=== PATIENT | female | born 1990 | race Caucasian/White ===

== ENCOUNTER 2018-06-07 17:54 | Inpatient (IN) ==
[2018-06-07 19:37] LABS: Basophils % 0.4 % (0.1-2.0); Eosinophils # 0.1 K/mm3 (0.0-0.4); Eosinophils % 0.8 % (0.1-12.0); Hematocrit 39.1 % (37.0-47.0); Hemoglobin 12.4 g/dL (12.2-16.2); Lymphocytes # 1.5 K/mm3 (0.7-4.5); Lymphocytes % 16.8 % (10-50); Mean Corpuscular HGB Conc 31.8 g/dL (31.8-35.4); Mean Corpuscular Volume 85.1 fl (81-99); Mean Platelet Volume 7.7 fl (7.4-10.4); Monocytes # 0.5 K/mm3 (0.1-1.0); Monocytes % 5.8 % (1.7-9.3); Neutrophils # 6.8 K/mm3 (1.8-7.8); Neutrophils % 76.1 % (37.0-80.0); Platelet Count 449 K/mm3 (142-424); Red Blood Count 4.59 M/mm3 (4.20-5.40); Red Cell Distribution Width 14.3 % (11.5-17.5); White Blood Count 8.9 K/mm3 (4.8-10.8)
[2018-06-07 19:55] LABS: Albumin Level 2.3 gm/dL (3.4-5.0); Albumin/Globulin Ratio 0.4 (1.1-1.8); Anion Gap 15.1 mEq/L (5-15); Bilirubin,Total 0.5 mg/dL (0.2-1.0); C-Reactive Protein 2.7 mg/L (0.0-0.9); Calcium 9.1 mg/dL (8.5-10.1); Globulin 5.9 gm/dl (1.3-3.2); Potassium 4.1 mmoL/L (3.5-5.1); Total Protein,Serum 8.2 gm/dL (6.4-8.2)
--- NOTE | 2018-06-07 21:53 | Emergency Department Note ---
ED Disposition Clinical Impression: IDDM (insulin dependent diabetes mellitus) Abscess of skin or subcutaneous tissue Qualifiers: Site of cutaneous abscess: trunk Site of cutaneous abscess of trunk: back Qualified Code(s): L02.212 - Cutaneous abscess of back [any part, except buttock] DKA (diabetic ketoacidoses) Qualifiers: Diabetes mellitus type: type 1 Diabetes mellitus complication detail: without coma Qualified Code(s): E10.10 - Type 1 diabetes mellitus with ketoacidosis without coma Disposition: Admitted As Inpatient Condition on Discharge: Good Instructions: DI for Skin Abscess Referrals: Destin Moya [Primary Care Provider] - - Critical Care Critical Care Time: No Attestation: On 06/07/18, the high probability of a clinically significant, sudden or life t hreatening deterioration of the following system(s) required my full and direct attention, intervention and personal management. The time I documented below is in addition to time spent performing reported procedures but includes the following listed in this critical care notation. Medical Decision Making - Medical Records Medical records reviewed: Yes: I reviewed the patient's medical records. - Asael Inquiry Pt receiving controlled substance: No Vital Signs: 06/07/18 19:07 Temperature 98.6 F Temperature Source Oral Pulse Rate [Right Brachial] 107 H Respiratory Rate 18 Blood Pressure [Right Arm] 134/78 Blood Pressure Mean [Right Arm] 96 02 Sat by Pulse Oximetry 100 - Lab Data Lab results reviewed: Yes: I reviewed the patient's lab results. Lab Results 06/07/18 19:24: WBC 8.9, RBC 4.59, Hgb 12.4, Hct 39.1, MCV 85.1, MCH 27.0, MCHC 31.8, RDW 14.3, Plt Count 449 H D, MPV 7.7, Neut % (Auto) 76.1, Lymph % (Auto) 16.8, [place] % (Auto) 5.8, Eos % (Auto) 0.8, Baso % (Auto) 0.4, Neut # (Auto) 6.8, Lymph # (Auto) 1.5, [place] # (Auto) 0.5, Eos # (Auto) 0.1, Baso # (Auto) 0.0 06/07/18 19:24: Sodium 130 L, Potassium 4.1, Chloride 91 L, Carbon Dioxide 28, Anion Gap 15.1 H, BUN 8, Creatinine 0.96, Estimated Creat Clear 66, Estimated GFR 70, Est GFR ( Amer) 84, Glucose 547 H*, Calcium 9.1, Total Bilirubin 0.5, AST 11 L, ALT 18, Alkaline Phosphatase 191 H, C-Reactive Protein 2.7 H, Total Protein 8.2, Albumin 2.3 L, Globulin 5.9 H, Albumin/Globulin Ratio 0.4 L 06/07/18 19:24: ESR > 120 H 06/07/18 19:24: Lactate 1.3 06/07/18 19:24: Acetone Level Small Result diagrams: 06/07/18 19:24 06/07/18 19:24 Orders (Tests/Meds): ED MEDICATIONS Generic Name Dose Route Start Last Admin Trade Name Freq PRN Reason Stop Dose Admin Sodium Chloride 1,000 mls @ 999 mls/hr 06/07/18 19:15 06/07/18 20:00 Sod Chlor 0.9% 1000ml Bag IV 06/07/18 20:15 999 mls/hr .Q1H1M DOLORES Administration Sodium Chloride 1,000 mls @ 999 mls/hr 06/07/18 20:30 06/07/18 20:27 Sod Chlor 0.9% 1000ml Bag IV 06/07/18 21:30 999 mls/hr .Q1H1M DOLORES Administration Vancomycin HCl 1,000 mg/ 250 mls @ 125 mls/hr 06/07/18 21:56 06/07/18 22:01 Sodium Chloride IV 06/07/18 23:55 125 mls/hr ONCE ONE Administration Miscellaneous 1 each 06/07/18 22:00 06/07/18 21:56 Vancomycin Consult Request * 07/07/18 21:59 1 each CONSULT PHARMACY DOLORES Administration Sodium Chloride 10 ml 06/07/18 19:12 Saline Flush 10ml Syringe IV 07/07/18 19:11 NEEDED PRN Maintain IV Site Discontinued Medications Generic Name Dose Route Start Last Admin Trade Name Freq PRN Reason Stop Dose Admin Insulin Human Regular 10 unit 06/07/18 22:18 Humulin R Insulin 100 Units/Ml 10ml Vial IVP 06/07/18 22:19 ONCE ONE Ketorolac Tromethamine 30 mg 06/07/18 19:12 06/07/18 19:59 Toradol 30mg/Ml Vial IV 06/07/18 19:13 30 mg ONCE ONE Administration ORDERS Category Date Time Status Blood Culture Stat Micro 06/07/18 19:24 Received - Physician Consults Physician Consulted: sound Reason -: Admission Skin/Abscess/FB HPI - General Chief complaint: Skin/Abscess/Foreign Body Stated complaint: Abscess on right shoulder, no better Time Seen by Provider: 06/07/18 21:50 Mode of Arrival: Family Vehicle Source of Information: Patient, Medical Record Limitations: No Limitations Description of Symptoms (Recalled from ER Triage Doc. by RN): pt seen in ed on thursday for right scapular abscess. pt given antibx and states she is still taking them but the abscess has worsened. - History of Present Illness HPI narrative: diabetic wf who has progressive abscess rt scapular region - she was seen in the ed and had pos mrsa and refused admit - despite abx abscess has increased MD complaint: abscess/boil Onset (ago): day(s) Tetanus up to date: unsure Location: back Severity: moderate Associated symptoms: denies other symptoms Treatments prior to arrival: antibiotic - Related Data Home Medications Medication Instructions Recorded Confirmed Sulfamethoxazole/Trimethoprim 1 each PO BID 06/07/18 06/07/18 [Bactrim DS tablet] cephALEXin [Keflex 500mg Cap] 500 mg PO TID 06/07/18 06/07/18 Allergies Allergy/AdvReac Type Severity Reaction Status Date / Time No Known Allergies Allergy Verified 06/07/18 19:10 [facility] History - Hepatitis A Screen Drug use history?: Yes High risk sexual behaviors?: No History of sexually transmitted infection?: No Currently employed?: No Childcare worker?: No Do you have indoor plumbing?: Yes Do you have electricity?: Yes Attestation statement:: This patient has been screened for Hepatitis A risk factors. I have reviewed the patient's past medical history: Yes Medical History: Reports:: Diabetes Mellitus Type 1 Denies:: Cancer, Diabetes Mellitus Type 2, MRSA Laterality Cases: Left: Other Amputation: No - Social History Smoking Status: Never smoker Alcohol Intake: never - Psychiatric History Expresses thoughts of harming self/others: None Suicide Plan Description: No Plan ROS Obtained: Yes All systems reviewed & no additional complaints - Constitutional Constitutional: Denies fever(s) - Eyes Eyes: Denies change in vision - ENT Ears, Nose, Mouth, and Throat: Denies sore throat - Cardiovascular Cardiovascular: Denies chest pain - Respiratory Respiratory: No cough - Gastrointestinal Gastrointestingal: Denies: diarrhea - Genitourinary Female Genitourinary: Denies dysuria - Musculoskeletal Musculoskeletal: Denies joint pain, Denies neck pain - Integumentary/Breasts Skin/Breast: Reports boil - Neurologic Neurologic: Denies seizure-like activity Physical Exam - General General appearance: alert, in no apparent distress - Head Head exam: normocephalic - Eye Eye exam: Present: PERRL, EOMI - ENT ENT exam: Present: mucous membranes moist - Neck Neck exam: Present: trachea midline - Respiratory Respiratory exam: Absent: respiratory distress - Cardiovascular Cardiovascular exam: Present: regular rate. Absent: systolic murmur - Abdominal Exam Abdominal exam: Present: soft - Extremities Exam Extremities exam: Present: full ROM - Neurological Exam Neurological exam: Present: alert, oriented X3, CN II-XII intact - Psychiatric Psychiatric exam: Present: normal affect - Skin Skin exam: Present: other (boil 3x4 cm )
--- NOTE | 2018-06-08 07:46 | Pharmacy Consult Notes ---
[facility] Pharmacy VTE Monitoring - Patient Demographics Admission date: 06/08/18 Report Date: 06/08/18 Time: 07:46 Allergies/Adverse Reactions: Patient Allergies No Known Allergies Allergy (Verified 06/07/18 19:10) Height: 1.52 m Weight: 50.604 kg Patient Problems: Current Active Problems Abscess of skin or subcutaneous tissue (Acute) IDDM (insulin dependent diabetes mellitus) (Acute) DKA (diabetic ketoacidoses) (Acute) - VTE Risk Labs: VTE Related Lab Results Hgb 12.4 g/dL (12.2-16.2) 06/07/18 19:24 Hct 39.1 % (37.0-47.0) 06/07/18 19:24 Plt Count 449 K/mm3 (142-424) H D 06/07/18 19:24 BUN 8 mg/dL (7-18) 06/07/18 19:24 Creatinine 0.96 mg/dL (0.55-1.02) 06/07/18 19:24 Estimated Creat Clear 66 mL/min (50-200) 06/07/18 19:24 Was VTE Risk Assessment Performed: Yes VTE Score: 0 VTE Risk Level: Very Low Risk Clinical Trial Participant: No - Prophylaxis VTE Prophylaxis Ordered?: Yes Types of VTE Prophylaxis: TEDS Knee High
[2018-06-08 08:09] LABS: Basophils % 0.4 % (0.1-2.0); Eosinophils # 0.1 K/mm3 (0.0-0.4); Eosinophils % 1.4 % (0.1-12.0); Hematocrit 31.6 % (37.0-47.0); Lymphocytes # 1.8 K/mm3 (0.7-4.5); Lymphocytes % 23.2 % (10-50); Mean Corpuscular HGB Conc 31.8 g/dL (31.8-35.4); Mean Corpuscular Hemoglobin 26.4 pg (27.0-31.2); Mean Platelet Volume 7.4 fl (7.4-10.4); Monocytes # 0.5 K/mm3 (0.1-1.0); Monocytes % 6.9 % (1.7-9.3); Neutrophils # 5.2 K/mm3 (1.8-7.8); Neutrophils % 68.1 % (37.0-80.0); Platelet Count 408 K/mm3 (142-424); Red Blood Count 3.81 M/mm3 (4.20-5.40); Red Cell Distribution Width 14.1 % (11.5-17.5); White Blood Count 7.7 K/mm3 (4.8-10.8)
[2018-06-08 08:22] LABS: Anion Gap 8.1 mEq/L (5-15); Potassium 3.1 mmoL/L (3.5-5.1)
[2018-06-08 08:40] LABS: Calcium 7.5 mg/dL (8.5-10.1)
[2018-06-08 08:50] LABS: Hemoglobin 10.1 g/dL (12.2-16.2)
--- NOTE | 2018-06-08 10:13 | History & Physical Report ---
*Admission Date: 06/08/18 <Abbie Briggs 06/08/18 10:21> *Chief complaint: Abscess right scapular area <Abbie Briggs 06/08/18 10:21> *History of present illness: Ms. Norman is a 28-year-old female with a history of diabetes mellitus who presented to the [facility] emergency room with worsening abscess of the right scapular area. She was seen in the emergency room on 06/04/2018 as well and refused admission. She was started on p.o. antibiotics and cultures revealed MRSA. Patient states that the abscess has progressively worsened with an increase in drainage and pain. She has also had a fever and elevated blood sugars.. Also to note she is 2 months . With evaluation in the emergency room edema and erythema around the abscess was noted to be worse. She was thus admitted for IV antibiotics and surgical consult. This a.m. the area remains painful. She was able to rest some last night. She is n.p.o. <Abbie Briggs 06/08/18 10:21> [facility] History Medical History: Reports:: Diabetes Mellitus Type 1 Denies:: Cancer, Diabetes Mellitus Type 2, MRSA <Abbie Briggs 06/08/18 10:21> Have you ever received a pneumonia vaccine?: No <Abbie Briggs 06/08/18 10:21> Have you received a flu vaccine this season?: Yes <Abbie Briggs 06/08/18 10:21> Laterality Cases: Left: Other <Abbie Briggs 06/08/18 10:21> Other Surgeries: Yes: Appendectomy, (2), Other (TUMOR REMOVED RIGHT FOREHEAD) <Abbie Briggs 06/08/18 10:21> Amputation: No <Abbie Briggs 06/08/18 10:21> - *Social History Educational Level: Completed High School <Abbie Briggs 06/08/18 10:21> Smoking Status: Never smoker <Abbie Briggs 06/08/18 10:21> Alcohol Intake: never <Abbie Briggs 06/08/18 10:21> Occupational Status: unemployed <Abbie Briggs 06/08/18 10:21> Housing: house <Abbie Briggs - 06/08/18 10:21> Household Members: spouse, children <BriggsAbbie Renay 06/08/18 10:21> Travel in the last 8 weeks: None <Briggs,Abbie - 06/08/18 10:21> - Psychiatric History Expresses thoughts of harming self/others: None <Briggs,Abbie Renay 06/08/18 10:21> Suicide Plan Description: No Plan <ChesterAbbie Renay 06/08/18 10:21> *Family Hx:: Cancer, Diabetes <ChesterAbbie - 06/08/18 10:21> Review of Systems - Constitutional Reports fever(s) <Briggs,Abbie - 06/08/18 10:21> - ENT Denies ear pain, Denies sore throat <Abbie Briggs 06/08/18 10:21> - *Cardiovascular Denies chest pain, Denies shortness of breath <ChesterAbbie - 06/08/18 10:21> - *Respiratory Denies chest congestion, Denies cough, Denies shortness of breath <Abbie Briggs 06/08/18 10:21> - *Gastrointestinal Denies abdominal pain, Denies change in stools, Denies nausea, Denies vomiting <ChesterAbbie - 06/08/18 10:21> - *Genitourinary Denies difficulty urinating <ChesterAbbie - 06/08/18 10:21> - *Musculoskeletal Denies abnormal walking <ChesterAbbie - 06/08/18 10:21> - *Neurologic Denies seizure-like activity <Abbie Briggs 06/08/18 10:21> Meds Home Medications Medication Instructions Recorded Confirmed Type Insulin Aspart [Novolog] 0 unit SQ DIRECTED 06/07/18 06/08/18 History Insulin NPH Hum/Reg Insulin Hm 7 unit SQ PM 06/07/18 06/08/18 History [Humulin 70/30 Insulin 100 Units/mL 10mL Vial] Insulin NPH Hum/Reg Insulin Hm 17 unit SQ DAILY 06/07/18 06/07/18 History [Humulin 70/30 Insulin 100 Units/mL 10mL Vial] Sulfamethoxazole/Trimethoprim 1 each PO BID 06/07/18 06/07/18 History [Bactrim DS tablet] cephALEXin [Keflex 500mg Cap] 500 mg PO TID 06/07/18 06/07/18 History <Huyen Walls - 06/08/18 11:16> Allergies Allergy/AdvReac Type Severity Reaction Status Date / Time No Known Allergies Allergy Verified 06/07/18 19:10 <Huyen Walls - 06/08/18 11:16> Exam Vital signs and Labs for Last 24 Hours: Temp Pulse Resp BP Pulse Ox 98.4 F 91 H 16 137/68 97 06/08/18 08:00 06/08/18 08:00 06/08/18 08:00 06/08/18 08:00 06/08/18 08:00 Laboratory Results - last 24 hr 06/07/18 19:24: WBC 8.9, RBC 4.59, Hgb 12.4, Hct 39.1, MCV 85.1, MCH 27.0, MCHC 31.8, RDW 14.3, Plt Count 449 H D, MPV 7.7, Neut % (Auto) 76.1, Lymph % (Auto) 16.8, [place] % (Auto) 5.8, Eos % (Auto) 0.8, Baso % (Auto) 0.4, Neut # (Auto) 6.8, Lymph # (Auto) 1.5, [place] # (Auto) 0.5, Eos # (Auto) 0.1, Baso # (Auto) 0.0 06/07/18 19:24: Sodium 130 L, Potassium 4.1, Chloride 91 L, Carbon Dioxide 28, Anion Gap 15.1 H, BUN 8, Creatinine 0.96, Estimated Creat Clear 66, Estimated GFR 70, Est GFR ( Amer) 84, Glucose 547 H*, Calcium 9.1, Total Bilirubin 0.5, AST 11 L, ALT 18, Alkaline Phosphatase 191 H, C-Reactive Protein 2.7 H, Total Protein 8.2, Albumin 2.3 L, Globulin 5.9 H, Albumin/Globulin Ratio 0.4 L 06/07/18 19:24: ESR > 120 H 06/07/18 19:24: Lactate 1.3 06/07/18 19:24: Acetone Level Small 06/07/18 22:57: POC Glucose 368 H* 06/08/18 07:09: WBC 7.7, RBC 3.81 L, Hgb 10.1 L D, Hct 31.6 L, MCV 83.0, MCH 26.4 L, MCHC 31.8, RDW 14.1, Plt Count 408, MPV 7.4, Neut % (Auto) 68.1, Lymph % (Auto) 23.2, [place] % (Auto) 6.9, Eos % (Auto) 1.4, Baso % (Auto) 0.4, Neut # (Auto) 5.2, Lymph # (Auto) 1.8, [place] # (Auto) 0.5, Eos # (Auto) 0.1, Baso # (Auto) 0.0 06/08/18 07:09: Sodium 140, Potassium 3.1 L D, Chloride 106, Carbon Dioxide 29, Anion Gap 8.1, BUN 7, Creatinine 0.69 D, Estimated Creat Clear 98, Estimated GFR 102, Est GFR ( Amer) 123 D, Glucose 185 H D, Calcium 7.5 L D, Magnesium 1.8 06/08/18 07:09: Acetone Level None detected <Sound,Huyen - 06/08/18 11:16> Temp Pulse Resp BP Pulse Ox 98.4 F 91 H 16 137/68 97 06/08/18 08:00 06/08/18 08:00 06/08/18 08:00 06/08/18 08:00 06/08/18 08:00 Laboratory Results - last 24 hr 06/07/18 19:24: WBC 8.9, RBC 4.59, Hgb 12.4, Hct 39.1, MCV 85.1, MCH 27.0, MCHC 31.8, RDW 14.3, Plt Count 449 H D, MPV 7.7, Neut % (Auto) 76.1, Lymph % (Auto) 16.8, [place] % (Auto) 5.8, Eos % (Auto) 0.8, Baso % (Auto) 0.4, Neut # (Auto) 6.8, Lymph # (Auto) 1.5, [place] # (Auto) 0.5, Eos # (Auto) 0.1, Baso # (Auto) 0.0 06/07/18 19:24: Sodium 130 L, Potassium 4.1, Chloride 91 L, Carbon Dioxide 28, Anion Gap 15.1 H, BUN 8, Creatinine 0.96, Estimated Creat Clear 66, Estimated GFR 70, Est GFR ( Amer) 84, Glucose 547 H*, Calcium 9.1, Total Bilirubin 0.5, AST 11 L, ALT 18, Alkaline Phosphatase 191 H, C-Reactive Protein 2.7 H, Total Protein 8.2, Albumin 2.3 L, Globulin 5.9 H, Albumin/Globulin Ratio 0.4 L 06/07/18 19:24: ESR > 120 H 06/07/18 19:24: Lactate 1.3 06/07/18 19:24: Acetone Level Small 06/07/18 22:57: POC Glucose 368 H* 06/08/18 07:09: WBC 7.7, RBC 3.81 L, Hgb 10.1 L D, Hct 31.6 L, MCV 83.0, MCH 26.4 L, MCHC 31.8, RDW 14.1, Plt Count 408, MPV 7.4, Neut % (Auto) 68.1, Lymph % (Auto) 23.2, [place] % (Auto) 6.9, Eos % (Auto) 1.4, Baso % (Auto) 0.4, Neut # (Auto) 5.2, Lymph # (Auto) 1.8, [place] # (Auto) 0.5, Eos # (Auto) 0.1, Baso # (Auto) 0.0 06/08/18 07:09: Sodium 140, Potassium 3.1 L D, Chloride 106, Carbon Dioxide 29, Anion Gap 8.1, BUN 7, Creatinine 0.69 D, Estimated Creat Clear 98, Estimated GFR 102, Est GFR ( Amer) 123 D, Glucose 185 H D, Calcium 7.5 L D, Magnesium 1.8 06/08/18 07:09: Acetone Level None detected <Abbie Briggs - 06/08/18 10:21> I & O for Last 24 hours: Intake & Output 06/05/18 06/06/18 06/07/18 06/08/18 11:59 11:59 11:59 11:59 Intake Total 2838 / 2838 Balance 2838 / 2838 Weight 111 lb 9 oz <TitiHuyen - 06/08/18 11:16> Intake & Output 06/05/18 06/06/18 06/07/18 06/08/18 11:59 11:59 11:59 11:59 Intake Total 2838 / 2838 Balance 2838 / 2838 Weight 111 lb 9 oz <Abbie Briggs 06/08/18 10:21> - Constitutional no acute distress <Abbie Briggs 06/08/18 10:21> Comments: Awakened for exam <Abbie Briggs 06/08/18 10:21> - *Routine HEENT Exam Head: Present: normocephalic, atraumatic <Abbie Briggs 06/08/18 10:21> Eye: Present: PERRL. Absent: conjunctival icterus, scleral injection <Abbie Briggs 06/08/18 10:21> ENT: Present: mucous membranes moist, oropharynx clear <Abbie Briggs 06/08/18 10:21> - *Routine Neck Exam Present: supple, tenderness. Absent: carotid bruit, lymphadenopathy, thyromegaly <Abbie Briggs 06/08/18 10:21> Comments: Right side of neck <Abbie Briggs 06/08/18 10:21> - *Routine Respiratory Exam Present: CTA bilaterally (Anteriorly and posteriorly) <Abbie Briggs 06/08/18 10:21> - *Routine Cardiovascular Exam Present: RRR <Abbie Briggs 06/08/18 10:21> - *Routine Abdominal Exam Present: soft, normoactive bowel sounds. Absent: tenderness, distended <Abbie Briggs 06/08/18 10:21> - *Routine Extremities Exam Absent: edema <Abbie Briggs 06/08/18 10:21> - *Routine Skin Exam Comments: Right scapular with edema and erythema of about 5-6 cm. Center with draining pus. Very tender with removal of tape. <Abbie Briggs 06/08/18 10:21> - *Routine Neurological Exam Present: alert, oriented X3 <Abbie Briggs 06/08/18 10:21> Assessment and Plan (1) Abscess of skin or subcutaneous tissue Current visit: Yes Status: Acute Qualifiers: Site of cutaneous abscess: trunk Site of cutaneous abscess of trunk: back Qualified Code(s): L02.212 - Cutaneous abscess of back [any part, except buttock] Category: Medical Code(s): L02.91 - Cutaneous abscess, unspecified <TitiHuyen - 06/08/18 11:16> - Assessment and plan all Dx Assessment and Plan for all problems:: Will get surgical consult for the abscess on her back that is draining with yellow pus noted in my exam this morning. I & D this PM per surgery. Will continue IV abx and descalade after cultures. Pain management with IV meds for now. <Huyen Walls - 06/08/18 11:16> Patient has been started on IV fluids, antibiotics, sliding scale insulin, and has a surgical consult. She is n.p.o. <Abbie Briggs - 06/08/18 10:21>
--- NOTE | 2018-06-08 11:08 | Consult Report ---
*Admission Date: 06/08/18 *Chief complaint: Abscess on right shoulder *History of present illness: Patient is a 28-year-old white female with diabetes. She had a previous abscess about 9 months ago on her left shoulder for which she had to have incision and drainage under anesthesia in [facility] and initiation of dressing changes. For several days she has had a similar area on the right shoulder p osteriorly. She had been seen and evaluated in the emergency department several days ago and was found to have a serum glucose greater than 700. Reportedly the patient refused at that time. She was started on oral antibiotics. She presented back to the emergency department yesterday evening with worsening symptoms. She was admitted for inpatient management and surgical consultation. Review of Systems - Review of Systems Review of systems:: pertinent systems reviewed and negative unless documented below - *Neurologic Denies abnormal walking, Denies seizure-like activity [facility] History Medical History: Reports:: Diabetes Mellitus Type 1 Denies:: Cancer, Diabetes Mellitus Type 2, MRSA Have you ever received a pneumonia vaccine?: No Have you received a flu vaccine this season?: Yes Laterality Cases: Left: Other Other Surgeries: Yes: Appendectomy, (2), Other (TUMOR REMOVED RIGHT FOREHEAD) Amputation: No - *Social History Educational Level: Completed High School Smoking Status: Never smoker Alcohol Intake: never Occupational Status: unemployed Housing: house Household Members: spouse, children Travel in the last 8 weeks: None - Psychiatric History Expresses thoughts of harming self/others: None Suicide Plan Description: No Plan *Family Hx:: Cancer, Diabetes Meds Home Medications Medication Instructions Recorded Confirmed Type Insulin Aspart [Novolog] 0 unit SQ DIRECTED 06/07/18 06/08/18 History Insulin NPH Hum/Reg Insulin Hm 7 unit SQ PM 06/07/18 06/08/18 History [Humulin 70/30 Insulin 100 Units/mL 10mL Vial] Insulin NPH Hum/Reg Insulin Hm 17 unit SQ DAILY 06/07/18 06/07/18 History [Humulin 70/30 Insulin 100 Units/mL 10mL Vial] Sulfamethoxazole/Trimethoprim 1 each PO BID 06/07/18 06/07/18 History [Bactrim DS tablet] cephALEXin [Keflex 500mg Cap] 500 mg PO TID 06/07/18 06/07/18 History Allergies Allergy/AdvReac Type Severity Reaction Status Date / Time No Known Allergies Allergy Verified 06/07/18 19:10 Exam Vital signs and Labs for Last 24 Hours: Temp Pulse Resp BP Pulse Ox 98.4 F 91 H 16 137/68 97 06/08/18 08:00 06/08/18 08:00 06/08/18 08:00 06/08/18 08:00 06/08/18 08:00 Laboratory Results - last 24 hr 06/07/18 19:24: WBC 8.9, RBC 4.59, Hgb 12.4, Hct 39.1, MCV 85.1, MCH 27.0, MCHC 31.8, RDW 14.3, Plt Count 449 H D, MPV 7.7, Neut % (Auto) 76.1, Lymph % (Auto) 16.8, [place] % (Auto) 5.8, Eos % (Auto) 0.8, Baso % (Auto) 0.4, Neut # (Auto) 6.8, Lymph # (Auto) 1.5, [place] # (Auto) 0.5, Eos # (Auto) 0.1, Baso # (Auto) 0.0 06/07/18 19:24: Sodium 130 L, Potassium 4.1, Chloride 91 L, Carbon Dioxide 28, Anion Gap 15.1 H, BUN 8, Creatinine 0.96, Estimated Creat Clear 66, Estimated GFR 70, Est GFR ( Amer) 84, Glucose 547 H*, Calcium 9.1, Total Bilirubin 0.5, AST 11 L, ALT 18, Alkaline Phosphatase 191 H, C-Reactive Protein 2.7 H, Total Protein 8.2, Albumin 2.3 L, Globulin 5.9 H, Albumin/Globulin Ratio 0.4 L 06/07/18 19:24: ESR > 120 H 06/07/18 19:24: Lactate 1.3 06/07/18 19:24: Acetone Level Small 06/07/18 22:57: POC Glucose 368 H* 06/08/18 07:09: WBC 7.7, RBC 3.81 L, Hgb 10.1 L D, Hct 31.6 L, MCV 83.0, MCH 26.4 L, MCHC 31.8, RDW 14.1, Plt Count 408, MPV 7.4, Neut % (Auto) 68.1, Lymph % (Auto) 23.2, [place] % (Auto) 6.9, Eos % (Auto) 1.4, Baso % (Auto) 0.4, Neut # (Auto) 5.2, Lymph # (Auto) 1.8, [place] # (Auto) 0.5, Eos # (Auto) 0.1, Baso # (Auto) 0.0 06/08/18 07:09: Sodium 140, Potassium 3.1 L D, Chloride 106, Carbon Dioxide 29, Anion Gap 8.1, BUN 7, Creatinine 0.69 D, Estimated Creat Clear 98, Estimated GFR 102, Est GFR ( Amer) 123 D, Glucose 185 H D, Calcium 7.5 L D, Magnesium 1.8 06/08/18 07:09: Acetone Level None detected I & O for Last 24 hours: Intake & Output 06/05/18 06/06/18 06/07/18 06/08/18 11:59 11:59 11:59 11:59 Intake Total 2838 / 2838 Balance 2838 / 2838 Weight 111 lb 9 oz - *Routine HEENT Exam Head: Present: normocephalic Eye: Present: EOMI, PERRL ENT: Present: mucous membranes moist - *Routine Respiratory Exam Present: CTA bilaterally - *Routine Cardiovascular Exam Present: RRR - *Routine Skin Exam Comments: On the posterior right upper back area overlying the scapula there is a rather large area of significant induration with multiple draining pustules. This area is markedly tender. Is consistent with a large soft tissue infection with abscess. Results - Labs 06/08/18 07:09 06/08/18 07:09 Laboratory Results - last 24 hr 06/07/18 19:24: WBC 8.9, RBC 4.59, Hgb 12.4, Hct 39.1, MCV 85.1, MCH 27.0, MCHC 31.8, RDW 14.3, Plt Count 449 H D, MPV 7.7, Neut % (Auto) 76.1, Lymph % (Auto) 16.8, [place] % (Auto) 5.8, Eos % (Auto) 0.8, Baso % (Auto) 0.4, Neut # (Auto) 6.8, Lymph # (Auto) 1.5, [place] # (Auto) 0.5, Eos # (Auto) 0.1, Baso # (Auto) 0.0 06/07/18 19:24: Sodium 130 L, Potassium 4.1, Chloride 91 L, Carbon Dioxide 28, Anion Gap 15.1 H, BUN 8, Creatinine 0.96, Estimated Creat Clear 66, Estimated GFR 70, Est GFR ( Amer) 84, Glucose 547 H*, Calcium 9.1, Total Bilirubin 0.5, AST 11 L, ALT 18, Alkaline Phosphatase 191 H, C-Reactive Protein 2.7 H, Total Protein 8.2, Albumin 2.3 L, Globulin 5.9 H, Albumin/Globulin Ratio 0.4 L 06/07/18 19:24: ESR > 120 H 06/07/18 19:24: Lactate 1.3 06/07/18 19:24: Acetone Level Small 06/07/18 22:57: POC Glucose 368 H* 06/08/18 07:09: WBC 7.7, RBC 3.81 L, Hgb 10.1 L D, Hct 31.6 L, MCV 83.0, MCH 26.4 L, MCHC 31.8, RDW 14.1, Plt Count 408, MPV 7.4, Neut % (Auto) 68.1, Lymph % (Auto) 23.2, [place] % (Auto) 6.9, Eos % (Auto) 1.4, Baso % (Auto) 0.4, Neut # (Auto) 5.2, Lymph # (Auto) 1.8, [place] # (Auto) 0.5, Eos # (Auto) 0.1, Baso # (Auto) 0.0 06/08/18 07:09: Sodium 140, Potassium 3.1 L D, Chloride 106, Carbon Dioxide 29, Anion Gap 8.1, BUN 7, Creatinine 0.69 D, Estimated Creat Clear 98, Estimated GFR 102, Est GFR ( Amer) 123 D, Glucose 185 H D, Calcium 7.5 L D, Magnesium 1.8 06/08/18 07:09: Acetone Level None detected Assessment and Plan - Assessment and plan all Dx Assessment and Plan for all problems:: She has evidence of significant residual abscess based on clinical examination. Plan will be for incision and drainage this afternoon with possible debridement and initiation of dressing changes.
--- NOTE | 2018-06-08 11:32 | Pharmacy Consult Notes ---
- Pharmacy Consult Date: 06/08/18 Time: 11:31 Referring provider: DR. MCCARTY Reason for Consult:: VANCOMYCIN DOSING Allergies and ADEs:: Allergies Allergy/AdvReac Type Severity Reaction Status Date / Time No Known Allergies Allergy Verified 06/07/18 19:10 Home Medications:: Home Medications Medication Instructions Recorded Confirmed Type Insulin Aspart [Novolog] 0 unit SQ DIRECTED 06/07/18 06/08/18 History Insulin NPH Hum/Reg Insulin Hm 7 unit SQ PM 06/07/18 06/08/18 History [Humulin 70/30 Insulin 100 Units/mL 10mL Vial] Insulin NPH Hum/Reg Insulin Hm 17 unit SQ DAILY 06/07/18 06/07/18 History [Humulin 70/30 Insulin 100 Units/mL 10mL Vial] Sulfamethoxazole/Trimethoprim 1 each PO BID 06/07/18 06/07/18 History [Bactrim DS tablet] cephALEXin [Keflex 500mg Cap] 500 mg PO TID 06/07/18 06/07/18 History Height: 1.52 m Weight: 50.604 kg Laboratory Results:: Laboratory Results - last 24 hr 06/07/18 19:24: WBC 8.9, RBC 4.59, Hgb 12.4, Hct 39.1, MCV 85.1, MCH 27.0, MCHC 31.8, RDW 14.3, Plt Count 449 H D, MPV 7.7, Neut % (Auto) 76.1, Lymph % (Auto) 16.8, [place] % (Auto) 5.8, Eos % (Auto) 0.8, Baso % (Auto) 0.4, Neut # (Auto) 6.8, Lymph # (Auto) 1.5, [place] # (Auto) 0.5, Eos # (Auto) 0.1, Baso # (Auto) 0.0 06/07/18 19:24: Sodium 130 L, Potassium 4.1, Chloride 91 L, Carbon Dioxide 28, Anion Gap 15.1 H, BUN 8, Creatinine 0.96, Estimated Creat Clear 66, Estimated GFR 70, Est GFR ( Amer) 84, Glucose 547 H*, Calcium 9.1, Total Bilirubin 0.5, AST 11 L, ALT 18, Alkaline Phosphatase 191 H, C-Reactive Protein 2.7 H, Total Protein 8.2, Albumin 2.3 L, Globulin 5.9 H, Albumin/Globulin Ratio 0.4 L 06/07/18 19:24: ESR > 120 H 06/07/18 19:24: Lactate 1.3 06/07/18 19:24: Acetone Level Small 06/07/18 22:57: POC Glucose 368 H* 06/08/18 07:09: WBC 7.7, RBC 3.81 L, Hgb 10.1 L D, Hct 31.6 L, MCV 83.0, MCH 26.4 L, MCHC 31.8, RDW 14.1, Plt Count 408, MPV 7.4, Neut % (Auto) 68.1, Lymph % (Auto) 23.2, [place] % (Auto) 6.9, Eos % (Auto) 1.4, Baso % (Auto) 0.4, Neut # (Auto) 5.2, Lymph # (Auto) 1.8, [place] # (Auto) 0.5, Eos # (Auto) 0.1, Baso # (Auto) 0.0 06/08/18 07:09: Sodium 140, Potassium 3.1 L D, Chloride 106, Carbon Dioxide 29, Anion Gap 8.1, BUN 7, Creatinine 0.69 D, Estimated Creat Clear 98, Estimated GFR 102, Est GFR ( Amer) 123 D, Glucose 185 H D, Calcium 7.5 L D, Magnesium 1.8 06/08/18 07:09: Acetone Level None detected Medical History: Reports:: Diabetes Mellitus Type 1 Denies:: Cancer, Diabetes Mellitus Type 2, MRSA Assessment and Plan (1) Abscess of skin or subcutaneous tissue Current visit: Yes Status: Acute Qualifiers: Site of cutaneous abscess: trunk Site of cutaneous abscess of trunk: back Qualified Code(s): L02.212 - Cutaneous abscess of back [any part, except buttock] Category: Medical Code(s): L02.91 - Cutaneous abscess, unspecified - Assessment and plan all Dx Assessment and Plan for all problems:: BASED ON PATIENT FACTORS, RECOMMEND VANCOMYCIN 1 GM IV Q18H. WILL OBTAIN VANCOMYCIN TROUGH LEVEL TOMORROW PRIOR TO DOSE. PHARMACY WILL FOLLOW DAILY AND ADJUST APPROPRIATE.
--- NOTE | 2018-06-08 14:33 | Progress Note ---
[facility] Anesthesia Checklist - Patient Identification Patient Identification: Arm Band, Verbal (Name & ) - Structural Data Admitted From: Home Planned Operative Procedure/s: Right shoulder I&D Consent for Planned Operative Procedure(s) Verified: Yes Verified Documents: Surgical Consent, History and Physical - NPO Status Verified Time NPO: 00:00 - Chart Verification Results Verified: HCG - Additional verifications Fingerstick Blood Glucose: 172 Patient : No Anesthesia Reactions: No - Airway Assessment C-Spine Mobility Assessed: Yes TMJ Mobility Assessed: Yes Dentition: Good Dentition - Neurological Assessment Level of Consciousness: Awake Hx Seizures: No Numbness or tingling in extremities: No - Anesthesia Plan Anesthesia Risk discussed: Yes Anesthesia Plan: Verified ASA Class: III Anesthesia Type: General [facility] History I have reviewed the patient's past medical history: Yes Medical History: Reports:: Diabetes Mellitus Type 1 Denies:: Cancer, Diabetes Mellitus Type 2, MRSA Have you ever received a pneumonia vaccine?: No Have you received a flu vaccine this season?: Yes Laterality Cases: Left: Other Other Surgeries: Yes: Appendectomy, (2), Other (TUMOR REMOVED RIGHT FOREHEAD) Amputation: No - *Social History Educational Level: Completed High School Smoking Status: Never smoker Alcohol Intake: never Occupational Status: unemployed Housing: house Household Members: spouse, children Travel in the last 8 weeks: None - Psychiatric History Expresses thoughts of harming self/others: None Suicide Plan Description: No Plan *Family Hx:: Cancer, Diabetes
--- NOTE | 2018-06-08 15:17 | Operative Note ---
Date of procedure: 06/08/18 Pre-op Diagnosis:: Soft tissue infection of the right posterior shoulder area Post-op Diagnosis:: Same Procedure performed:: Incision and drainage of complex abscess of the right upper posterior trunk area with debridement skin, subcutaneous tissue, and fascia. Surgeon:: Louis Montesinos MD Anesthesia: LMA Estimated blood loss (mL): 15 Clinical Note:: Patient is a 28-year-old white female with diabetes. She had a previous abscess about 9 months ago on her left shoulder for which she had to have incision and drainage under anesthesia in [facility] and initiation of dressing changes. For several days she has had a similar area on the right shoulder posteriorly. She had been seen and evaluated in the emergency department several days ago and was found to have a serum glucose greater than 700. Reportedly the patient refused ADmission as recommended at that time. She was started on oral antibiotics. She presented back to the emergency department yesterday evening with worsening symptoms. She was admitted for inpatient management and surgical consultation. Patient was seen and examined as a consultation and found to have evidence of significant soft tissue infection with purulent drainage possibly with some necrotizing component. Plan was made for urgent incision and drainage and debridement. Operative findings:: Findings consistent with focal necrotizing soft tissue infection with necrotizing cellulitis and focal necrotizing fasciitis. Operative note:: Consent was obtained and patient was taken to the operating room. She was given additional intravenous antibiotics. General anesthesia was induced via LMA. She was positioned in left lateral position. The area was prepped and draped in the standard surgical fashion. Central limited incision was made. There was some purulent drainage which was sent for culture. There was evidence of necrosis of the underlying subcutaneous tissues. Limited circular incision was made using electrocautery. It was noted that she had purulence tracking through the subcutaneous tissues with evidence of at least a necrotizing cellulitis. Serial debridement was carried out circumferentially to relatively healthy nonnecrotic tissues. Some of the underlying fascia overlying the muscle showed evidence of necrosis with some occasional liquefied necrosis. This is consistent with necrotizing cellulitis with very focal necrotizing fasciitis. Debridement was carried out circumferentially and deeply to relatively healthy appearing tissues. The wound was then irrigated with 3 L of pulsatile saline irrigation using the Pulsavac device. Hemostasis was achieved with electrocautery. Please note that the wound measures 7 cm x 5 cm x 2 cm in depth. Local anesthetic was infiltrated. The wound was packed with a moistened saline Kerlix gauze. Clean dry sterile dressing was applied. Condition: stable Disposition: PACU Specimens:: Debrided tissue Complications:: None immediately apparent
--- NOTE | 2018-06-08 15:19 | Progress Note ---
[facility] Anesthesia Record Part I Intake, IV Amount: 500 Estimated blood loss (mL): 30 Urine output (mL): 0 (NM) Blood Products used (#): none Blood Pressure: 109/50 SaO2: 96 Pulse Rate: 89 Respiratory Rate: 12 Temperature: 97.6 F Patient is:: Drowsy, Oral/Nasal airway, Stable Stable to PACU at:: 15:17
--- NOTE | 2018-06-08 15:19 | Progress Note ---
[facility] Anesthesia Record Part II Discharge Time: 15:47 Destination: Medical Surgical Department PACU nurse assessment reviewed?: Yes Patient Condition:: Good Anesthesia Complications:: None
--- NOTE | 2018-06-09 06:41 | Progress Note ---
Subjective Narrative: Patient actually feels better. States area is "sore". Exam Vital signs and Labs for Last 24 Hours: Temp Pulse Resp BP Pulse Ox 98.1 F 69 15 102/58 L 96 06/09/18 04:00 06/09/18 04:00 06/09/18 04:00 06/09/18 04:00 06/09/18 04:00 Laboratory Results - last 24 hr 06/07/18 22:57: POC Glucose 368 H* 06/08/18 07:09: WBC 7.7, RBC 3.81 L, Hgb 10.1 L D, Hct 31.6 L, MCV 83.0, MCH 26.4 L, MCHC 31.8, RDW 14.1, Plt Count 408, MPV 7.4, Neut % (Auto) 68.1, Lymph % (Auto) 23.2, [place] % (Auto) 6.9, Eos % (Auto) 1.4, Baso % (Auto) 0.4, Neut # ( Auto) 5.2, Lymph # (Auto) 1.8, [place] # (Auto) 0.5, Eos # (Auto) 0.1, Baso # (Auto) 0.0 06/08/18 07:09: Sodium 140, Potassium 3.1 L D, Chloride 106, Carbon Dioxide 29, Anion Gap 8.1, BUN 7, Creatinine 0.69 D, Estimated Creat Clear 98, Estimated GFR 102, Est GFR ( Amer) 123 D, Glucose 185 H D, Calcium 7.5 L D, Magnesium 1.8 06/08/18 07:09: Acetone Level None detected 06/08/18 11:45: POC Glucose 153 H 06/08/18 12:22: Urine HCG, Qual Negative 06/08/18 14:30: POC Glucose 172 H 06/08/18 16:12: POC Glucose 248 H 06/08/18 22:30: Random Glucose 514 H* I & O for Last 24 hours: Intake & Output 06/06/18 06/07/18 06/08/18 06/09/18 11:59 11:59 11:59 11:59 Intake Total 2838 / 2838 1390 / 1390 Output Total 0 / 0 Balance 2838 / 2838 1390 / 1390 Weight 111 lb 9 oz Microbiology Reports for the Last 24 Hours: Microbiology 06/08/18 Unknown Shoulder,Right Gram Stain - Final - *Routine Skin Exam Comments: Dressing dry and intact. Progress Note: A&P (1) Abscess of skin or subcutaneous tissue Status: Acute Current Visit: Yes Assessment and Plan for All Diagnoses:: Initiate dressing changes this morning. Continue antibiotics. Likely place VAC dressing in a day or two.
--- NOTE | 2018-06-09 08:49 | Progress Note ---
<Abbie Briggs - Last Filed: 06/09/18 08:49> Internal Medicine - PN: Subj Interval history: Had I&D of the wound yesterday and she feels better today. She was able to sleep some during the night. She is eating without difficulty. She ambulates without difficulty. She denies chest pain and shortness of breath Exam Vital signs and Labs for Last 24 Hours: Temp Pulse Resp BP Pulse Ox 97.4 F L 85 18 146/87 H 99 06/09/18 07:53 06/09/18 07:53 06/09/18 07:53 06/09/18 07:53 06/09/18 07:53 Laboratory Results - last 24 hr 06/08/18 07:09: Hgb 10.1 L D 06/08/18 11:45: POC Glucose 153 H 06/08/18 12:22: Urine HCG, Qual Negative 06/08/18 14:30: POC Glucose 172 H 06/08/18 16:12: POC Glucose 248 H 06/08/18 22:30: Random Glucose 514 H* 06/09/18 06:33: POC Glucose 270 H I & O for Last 24 hours: Intake & Output 06/06/18 06/07/18 06/08/18 06/09/18 11:59 11:59 11:59 11:59 Intake Total 2838 / 2838 5423 / 5423 Output Total 0 / 0 Balance 2838 / 2838 5423 / 5423 Weight 111 lb 9 oz Microbiology Reports for the Last 24 Hours: Microbiology 06/08/18 Unknown Shoulder,Right Gram Stain - Final - Constitutional no acute distress - *Routine Respiratory Exam Present: CTA bilaterally (Anteriorly and posteriorly) - *Routine Cardiovascular Exam Present: RRR - *Routine Abdominal Exam Present: soft, normoactive bowel sounds. Absent: tenderness - *Routine Extremities Exam Absent: edema, calf tenderness - *Routine Skin Exam Comments: Right scapular dressing is clean and dry - *Routine Neurological Exam Present: alert, oriented X3 Assessment and Plan (1) Abscess of skin or subcutaneous tissue Current visit: Yes Status: Acute Qualifiers: Site of cutaneous abscess: trunk Site of cutaneous abscess of trunk: back Qualified Code(s): L02.212 - Cutaneous abscess of back [any part, except buttock] Category: Medical Code(s): L02.91 - Cutaneous abscess, unspecified (2) DKA (diabetic ketoacidoses) Current visit: Yes Status: Acute Qualifiers: Diabetes mellitus type: type 1 Diabetes mellitus complication detail: without coma Qualified Code(s): E10.10 - Type 1 diabetes mellitus with ketoacidosis without coma Category: Medical Code(s): E13.10 - Other specified diabetes mellitus with ketoacidosis without coma (3) IDDM (insulin dependent diabetes mellitus) Current visit: Yes Status: Acute Category: Medical Code(s): E11.9 - Type 2 diabetes mellitus without complications; Z79.4 - [facility] ([facility] use of insulin - Assessment and plan all Dx Assessment and Plan for all problems:: Continue with IV antibiotics. As per Dr. Montesinos note, vac dressing planned in a couple of days. Will repeat BMP.. Saline lock <Huyen Walls - Last Filed: 06/09/18 11:30> Exam Vital signs and Labs for Last 24 Hours: Temp Pulse Resp BP Pulse Ox 97.4 F L 85 18 146/87 H 99 06/09/18 07:53 06/09/18 07:53 06/09/18 07:53 06/09/18 07:53 06/09/18 07:53 Laboratory Results - last 24 hr 06/08/18 11:45: POC Glucose 153 H 06/08/18 12:22: Urine HCG, Qual Negative 06/08/18 14:30: POC Glucose 172 H 06/08/18 16:12: POC Glucose 248 H 06/08/18 22:30: Random Glucose 514 H* 06/09/18 06:33: POC Glucose 270 H 06/09/18 09:23: Vancomycin Trough 3.5 L 06/09/18 09:23: Sodium 135 L, Potassium 3.4 L, Chloride 103, Carbon Dioxide 26, Anion Gap 9.4, BUN 10 D, Creatinine 0.68, Estimated Creat Clear 99, Estimated GFR 104, Est GFR ( Amer) 126, Glucose 280 H, Calcium 6.9 L I & O for Last 24 hours: Intake & Output 06/06/18 06/07/18 06/08/18 06/09/18 11:59 11:59 11:59 11:59 Intake Total 2838 / 2838 5423 / 5423 Output Total 0 / 0 Balance 2838 / 2838 5423 / 5423 Weight 111 lb 9 oz 111 lb 9 oz Microbiology Reports for the Last 24 Hours: Microbiology 06/08/18 Unknown Shoulder,Right Gram Stain - Final 06/08/18 Unknown Shoulder,Right Abscess Culture - Preliminary Gram Positive Cocci Assessment and Plan (1) Abscess of skin or subcutaneous tissue Current visit: Yes Status: Acute Qualifiers: Site of cutaneous abscess: trunk Site of cutaneous abscess of trunk: back Qualified Code(s): L02.212 - Cutaneous abscess of back [any part, except buttock] Category: Medical Code(s): L02.91 - Cutaneous abscess, unspecified (2) DKA (diabetic ketoacidoses) Current visit: Yes Status: Acute Qualifiers: Diabetes mellitus type: type 1 Diabetes mellitus complication detail: without coma Qualified Code(s): E10.10 - Type 1 diabetes mellitus with ketoacidosis without coma Category: Medical Code(s): E13.10 - Other specified diabetes mellitus with ketoacidosis without coma (3) IDDM (insulin dependent diabetes mellitus) Current visit: Yes Status: Acute Category: Medical Code(s): E11.9 - Type 2 diabetes mellitus without complications; Z79.4 - exterminator helper (current) use of insulin - Assessment and plan all Dx Assessment and Plan for all problems:: will manage her diabetes and dressing changes per surgery. Might need wound care upon discharge. Wound Vac placement might be neede per Dr. Montesinos in 1-2 days.
[2018-06-09 09:38] LABS: Anion Gap 9.4 mEq/L (5-15); Potassium 3.4 mmoL/L (3.5-5.1)
[2018-06-09 09:42] LABS: Calcium 6.9 mg/dL (8.5-10.1)
--- NOTE | 2018-06-09 10:59 | Pharmacy Consult Notes ---
- Pharmacy Consult Date: 06/09/18 Time: 10:56 Referring provider: NHUNG Reason for Consult:: VANCOMYCIN THERAPY Allergies and ADEs:: Allergies Allergy/AdvReac Type Severity Reaction Status Date / Time No Known Allergies Allergy Verified 06/07/18 19:10 Home Medications:: Home Medications Medication Instructions Recorded Confirmed Type Insulin Aspart [Novolog] 0 unit SQ DIRECTED 06/07/18 06/08/18 History Insulin NPH Hum/Reg Insulin Hm 7 unit SQ PM 06/07/18 06/08/18 History [Humulin 70/30 Insulin 100 Units/mL 10mL Vial] Insulin NPH Hum/Reg Insulin Hm 17 unit SQ DAILY 06/07/18 06/07/18 History [Humulin 70/30 Insulin 100 Units/mL 10mL Vial] Sulfamethoxazole/Trimethoprim 1 each PO BID 06/07/18 06/07/18 History [Bactrim DS tablet] cephALEXin [Keflex 500mg Cap] 500 mg PO TID 06/07/18 06/07/18 History Height: 1.52 m Weight: 50.604 kg Laboratory Results:: Laboratory Results - last 24 hr 06/08/18 11:45: POC Glucose 153 H 06/08/18 12:22: Urine HCG, Qual Negative 06/08/18 14:30: POC Glucose 172 H 06/08/18 16:12: POC Glucose 248 H 06/08/18 22:30: Random Glucose 514 H* 06/09/18 06:33: POC Glucose 270 H 06/09/18 09:23: Vancomycin Trough 3.5 L 06/09/18 09:23: Sodium 135 L, Potassium 3.4 L, Chloride 103, Carbon Dioxide 26, Anion Gap 9.4, BUN 10 D, Creatinine 0.68, Estimated Creat Clear 99, Estimated GFR 104, Est GFR ( Amer) 126, Glucose 280 H, Calcium 6.9 L Medical History: Reports:: Diabetes Mellitus Type 1 Denies:: Cancer, Diabetes Mellitus Type 2, MRSA, Seizures Assessment and Plan (1) Abscess of skin or subcutaneous tissue Current visit: Yes Status: Acute Qualifiers: Site of cutaneous abscess: trunk Site of cutaneous abscess of trunk: back Qualified Code(s): L02.212 - Cutaneous abscess of back [any part, except buttock] Category: Medical Code(s): L02.91 - Cutaneous abscess, unspecified (2) DKA (diabetic ketoacidoses) Current visit: Yes Status: Acute Qualifiers: Diabetes mellitus type: type 1 Diabetes mellitus complication detail: without coma Qualified Code(s): E10.10 - Type 1 diabetes mellitus with ketoacidosis without coma Category: Medical Code(s): E13.10 - Other specified diabetes mellitus with ketoacidosis without coma (3) IDDM (insulin dependent diabetes mellitus) Current visit: Yes Status: Acute Category: Medical Code(s): E11.9 - Type 2 diabetes mellitus without complications; Z79.4 - [facility] (current) use of insulin - Assessment and plan all Dx Assessment and Plan for all problems:: VANCOMYCIN TROUGH DRAWN BEFORE DOSE DUE TODAY = 3.5. DESIRED VANCOMYCIN TROUGH = 15-20. WILL CHANGE DOSING INTERVAL FROM EVERY 18 HOURS TO 12 HOURS. PHARMACY WILL FOLLOW DAILY AND ADJUST NECESSARY.
--- NOTE | 2018-06-10 06:30 | Progress Note ---
Subjective Patient reports: no new complaints (dressing change without difficulty this AM (per NSG the wound "looks better")) Exam Vital signs and Labs for Last 24 Hours: Temp Pulse Resp BP Pulse Ox 98.0 F 61 17 115/72 96 06/10/18 04:00 06/10/18 04:00 06/10/18 04:00 06/10/18 04:00 06/10/18 04:00 Laboratory Results - last 24 hr 06/08/18 06:04: POC Glucose 223 H 06/08/18 22:18: POC Glucose 550 H* 06/08/18 22:20: POC Glucose 511 H* 06/09/18 06:33: POC Glucose 270 H 06/09/18 09:23: Vancomycin Trough 3.5 L 06/09/18 09:23: Sodium 135 L, Potassium 3.4 L, Chloride 103, Carbon Dioxide 26, Anion Gap 9.4, BUN 10 D, Creatinine 0.68, Estimated Creat Clear 99, Estimated GFR 104, Est GFR ( Amer) 126, Glucose 280 H, Calcium 6.9 L 06/09/18 11:21: POC Glucose 243 H 06/09/18 16:22: POC Glucose 282 H 06/09/18 21:39: POC Glucose 281 H I & O for Last 24 hours: Intake & Output 06/07/18 06/08/18 06/09/18 06/10/18 11:59 11:59 11:59 11:59 Intake Total 2838 / 2838 5423 / 5423 960 / 960 Output Total 0 / 0 Balance 2838 / 2838 5423 / 5423 960 / 960 Weight 111 lb 9 oz 111 lb 9 oz 126 lb 2 oz Microbiology Reports for the Last 24 Hours: Microbiology 06/07/18 19:24 Blood Blood Culture - Preliminary NO GROWTH AFTER 48 HOURS 06/07/18 19:24 Blood Blood Culture - Preliminary NO GROWTH AFTER 48 HOURS 06/08/18 Unknown Shoulder,Right Gram Stain - Final 06/08/18 Unknown Shoulder,Right Abscess Culture - Preliminary Gram Positive Cocci - Constitutional no acute distress - *Routine Respiratory Exam Absent: respiratory distress - *Routine Skin Exam Comments: Dressing in place. No spreading cellulitis. Progress Note: A&P (1) Abscess of skin or subcutaneous tissue Status: Acute Assessment and plan: Continuing to improve status post incision and drainage/debridement. Continue antibiotics for now Continue dressing changes Likely discharge home within the next few days with ongoing dressing changes (and completion of a course of antibiotics) Current Visit: Yes (2) DKA (diabetic ketoacidoses) Status: Acute Current Visit: Yes (3) IDDM (insulin dependent diabetes mellitus) Status: Acute Current Visit: Yes
--- NOTE | 2018-06-10 10:36 | Progress Note ---
Internal Medicine - PN: Subj *Date: 06/10/18 *Time: 09:10 Interval history: Patient doing well s/p surgery. She is still sore but pain is controlled. Exam Vital signs and Labs for Last 24 Hours: Temp Pulse Resp BP Pulse Ox 97.6 F 79 16 115/69 96 06/10/18 08:00 06/10/18 08:00 06/10/18 08:00 06/10/18 08:00 06/10/18 08:00 Laboratory Results - last 24 hr 06/08/18 06:04: POC Glucose 223 H 06/08/18 22:18: POC Glucose 550 H* 06/08/18 22:20: POC Glucose 511 H* 06/09/18 09:23: Vancomycin Trough 3.5 L 06/09/18 11:21: POC Glucose 243 H 06/09/18 16:22: POC Glucose 282 H 06/09/18 21:39: POC Glucose 281 H 06/10/18 06:46: POC Glucose 216 H I & O for Last 24 hours: Intake & Output 06/07/18 06/08/18 06/09/18 06/10/18 11:59 11:59 11:59 11:59 Intake Total 2838 / 2838 5423 / 5423 1440 / 1440 Output Total 0 / 0 0 / 0 Balance 2838 / 2838 5423 / 5423 1440 / 1440 Weight 111 lb 9 oz 111 lb 9 oz 126 lb 2 oz Microbiology Reports for the Last 24 Hours: Microbiology 06/08/18 Unknown Shoulder,Right Gram Stain - Final 06/08/18 Unknown Shoulder,Right Abscess Culture - Final Staphylococcus aureus 06/07/18 19:24 Blood Blood Culture - Preliminary NO GROWTH AFTER 48 HOURS 06/07/18 19:24 Blood Blood Culture - Preliminary NO GROWTH AFTER 48 HOURS - *Routine HEENT Exam Head: Present: normocephalic Eye: Present: EOMI ENT: Present: mucous membranes moist - *Routine Neck Exam Present: supple, full ROM - *Routine Respiratory Exam Present: CTA bilaterally - *Routine Cardiovascular Exam Present: RRR - *Routine Abdominal Exam Present: soft, normoactive bowel sounds - *Routine Extremities Exam Absent: edema - Routine Back/Spine/Pelvis Exam Back/Spine: Present: warmth (dressing c/d/i on right upper back s/p surgery) - *Routine Skin Exam Present: intact - *Routine Neurological Exam Present: alert, oriented X3 Assessment and Plan (1) Abscess of skin or subcutaneous tissue Current visit: Yes Status: Acute Qualifiers: Site of cutaneous abscess: trunk Site of cutaneous abscess of trunk: back Qualified Code(s): L02.212 - Cutaneous abscess of back [any part, except buttock] Category: Medical Code(s): L02.91 - Cutaneous abscess, unspecified (2) DKA (diabetic ketoacidoses) Current visit: Yes Status: Acute Qualifiers: Diabetes mellitus type: type 1 Diabetes mellitus complication detail: without coma Qualified Code(s): E10.10 - Type 1 diabetes mellitus with ketoacidosis without coma Category: Medical Code(s): E13.10 - Other specified diabetes mellitus with ketoacidosis without coma (3) IDDM (insulin dependent diabetes mellitus) Current visit: Yes Status: Acute Category: Medical Code(s): E11.9 - Type 2 diabetes mellitus without complications; Z79.4 - [employer] (current) use of insulin - Assessment and plan all Dx Assessment and Plan for all problems:: switch to IV clinda today and possible wound vac tomorrow by Dr. Montesinos. Possible dc tomorrow.
--- NOTE | 2018-06-11 08:04 | Progress Note ---
Subjective Narrative: Feels well other than minor soreness. Exam Vital signs and Labs for Last 24 Hours: Temp Pulse Resp BP Pulse Ox 98.0 F 82 15 120/83 96 06/11/18 04:00 06/11/18 04:00 06/11/18 04:00 06/11/18 04:00 06/11/18 04:00 Laboratory Results - last 24 hr 06/10/18 11:57: POC Glucose 153 H 06/10/18 16:32: POC Glucose 191 H 06/10/18 19:56: POC Glucose 218 H 06/11/18 06:35: POC Glucose 118 H I & O for Last 24 hours: Intake & Output 06/08/18 06/09/18 06/10/18 06/11/18 11:59 11:59 11:59 11:59 Intake Total 2838 / 2838 5423 / 5423 1440 / 1440 480 / 480 Output Total 0 / 0 0 / 0 0 / 0 Balance 2838 / 2838 5423 / 5423 1440 / 1440 480 / 480 Weight 111 lb 9 oz 111 lb 9 oz 126 lb 2 oz Microbiology Reports for the Last 24 Hours: Microbiology 06/08/18 Unknown Shoulder,Right Gram Stain - Final 06/08/18 Unknown Shoulder,Right Abscess Culture - Final Staphylococcus aureus - *Routine Skin Exam Comments: Wound clean. Erythema markedly regressed. Progress Note: A&P (1) Abscess of skin or subcutaneous tissue Status: Acute Current Visit: Yes (2) DKA (diabetic ketoacidoses) Status: Acute Current Visit: Yes (3) IDDM (insulin dependent diabetes mellitus) Status: Acute Current Visit: Yes Assessment and Plan for All Diagnoses:: Probable discharge home today on outpatient wound care. May do oral antibiotics (Bactrim, Clindamycin).
--- NOTE | 2018-06-11 08:52 | Progress Note ---
<Julianne Garza - Last Filed: 06/11/18 08:50> Internal Medicine - PN: Subj *Date: 06/11/18 *Time: 08:50 Interval history: Patient states she is feeling a little bit better today. She still has some pain in the area of the abscess. She did rest better last night and is eating some breakfast this morning. Exam Vital signs and Labs for Last 24 Hours: Temp Pulse Resp BP Pulse Ox 97.0 F L 95 H 16 142/77 H 100 06/11/18 08:00 06/11/18 08:00 06/11/18 08:00 06/11/18 08:00 06/11/18 08:00 Laboratory Results - last 24 hr 06/10/18 11:57: POC Glucose 153 H 06/10/18 16:32: POC Glucose 191 H 06/10/18 19:56: POC Glucose 218 H 06/11/18 06:35: POC Glucose 118 H I & O for Last 24 hours: Intake & Output 06/08/18 06/09/18 06/10/18 06/11/18 11:59 11:59 11:59 11:59 Intake Total 2838 / 2838 5423 / 5423 1440 / 1440 960 / 960 Output Total 0 / 0 0 / 0 0 / 0 Balance 2838 / 2838 5423 / 5423 1440 / 1440 960 / 960 Weight 111 lb 9 oz 111 lb 9 oz 126 lb 2 oz Microbiology Reports for the Last 24 Hours: Microbiology 06/08/18 Unknown Shoulder,Right Gram Stain - Final 06/08/18 Unknown Shoulder,Right Abscess Culture - Final Staphylococcus aureus - Constitutional no acute distress - *Routine Respiratory Exam Present: CTA bilaterally - *Routine Cardiovascular Exam Present: RRR - *Routine Abdominal Exam Present: soft, normoactive bowel sounds. Absent: tenderness - *Routine Extremities Exam Absent: cyanosis, clubbing, edema - *Routine Skin Exam Comments: right shoulder with dressing in place, clean and dry Assessment and Plan (1) Abscess of skin or subcutaneous tissue Current visit: Yes Status: Acute Qualifiers: Site of cutaneous abscess: trunk Site of cutaneous abscess of trunk: back Qualified Code(s): L02.212 - Cutaneous abscess of back [any part, except buttock] Category: Medical Code(s): L02.91 - Cutaneous abscess, unspecified (2) DKA (diabetic ketoacidoses) Current visit: Yes Status: Acute Qualifiers: Diabetes mellitus type: type 1 Diabetes mellitus complication detail: without coma Qualified Code(s): E10.10 - Type 1 diabetes mellitus with ketoacidosis without coma Category: Medical Code(s): E13.10 - Other specified diabetes mellitus with ketoacidosis without coma (3) IDDM (insulin dependent diabetes mellitus) Current visit: Yes Status: Acute Category: Medical Code(s): E11.9 - Type 2 diabetes mellitus without complications; Z79.4 - termite inspector (current) use of insulin - Assessment and plan all Dx Assessment and Plan for all problems:: Surgery has seen patient. They feel she can be discharged today, but they would like to place a wound VAC and try to get p.o. antibiotics covered on her insurance before discharge. <Huyen Walls - Last Filed: 06/11/18 13:13> Exam Vital signs and Labs for Last 24 Hours: Temp Pulse Resp BP Pulse Ox 97.0 F L 95 H 16 142/77 H 100 06/11/18 08:00 06/11/18 08:00 06/11/18 08:00 06/11/18 08:00 06/11/18 08:00 Laboratory Results - last 24 hr 06/10/18 16:32: POC Glucose 191 H 06/10/18 19:56: POC Glucose 218 H 06/11/18 06:35: POC Glucose 118 H 06/11/18 11:59: POC Glucose 121 H I & O for Last 24 hours: Intake & Output 06/09/18 06/10/18 06/11/18 06/12/18 11:59 11:59 11:59 11:59 Intake Total 5423 / 5423 1440 / 1440 960 / 960 Output Total 0 / 0 0 / 0 0 / 0 Balance 5423 / 5423 1440 / 1440 960 / 960 Weight 111 lb 9 oz 126 lb 2 oz Microbiology Reports for the Last 24 Hours: Microbiology 06/08/18 Unknown Shoulder,Right Gram Stain - Final 06/08/18 Unknown Shoulder,Right Abscess Culture - Final Staphylococcus aureus Assessment and Plan (1) Abscess of skin or subcutaneous tissue Current visit: Yes Status: Acute Qualifiers: Site of cutaneous abscess: trunk Site of cutaneous abscess of trunk: back Qualified Code(s): L02.212 - Cutaneous abscess of back [any part, except buttock] Category: Medical Code(s): L02.91 - Cutaneous abscess, unspecified (2) DKA (diabetic ketoacidoses) Current visit: Yes Status: Acute Qualifiers: Diabetes mellitus type: type 1 Diabetes mellitus complication detail: without coma Qualified Code(s): E10.10 - Type 1 diabetes mellitus with ketoacidosis without coma Category: Medical Code(s): E13.10 - Other specified diabetes mellitus with ketoacidosis without coma (3) IDDM (insulin dependent diabetes mellitus) Current visit: Yes Status: Acute Category: Medical Code(s): E11.9 - Type 2 diabetes mellitus without complications; Z79.4 - termite inspector (current) use of insulin - Assessment and plan all Dx Assessment and Plan for all problems:: Will dc home with PO clinda if surgery allows today.
--- NOTE | 2018-06-13 15:36 | Discharge Summary ---
General - General Admission date:: 06/07/18 Discharge date: 06/11/18 HPI HPI: Ms. Norman is a 28-year-old female with a history of diabetes mellitus who presented to the [facility] emergency room with worsening abscess of the right scapular area. She was seen in the emergency room on 06/04/2018 as well and refused admission. She was started on p.o. antibiotics and cultures revealed MRSA. Patient states that the abscess has progressively worsened with an increase in drainage and pain. She has also had a fever and elevated blood sugars and was felt to have DKA on admission as there was acetone present. Also to note she is 2 months . With evaluation in the emergency room edema and erythema around the abscess was noted to be worse. She was thus admitted for IV antibiotics and surgical consult. This a.m. the area remains painful. She was able to rest some last night. She is n.p.o. Hospital Course Hospital Course: She was started on IV vancomycin, IV fluids, sliding scale insulin, and pain medication. She was seen by surgery who performed an I&D of the abscess. Dr. 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 She felt better after the surgery and was able to ambulate and eat without difficulty. The patient was switched to IV clindamycin. Dr. Montesinos changed the dressings and recommended a wound VAC. The wound VAC was placed and she was stable to be discharged home on oral clindamycin and she will continue her oral Bactrim that she has at home. She will follow-up with Dr. Montesinos in 1 week. Objective Vital signs: Temp Pulse Resp BP Pulse Ox 97.0 F L 95 H 16 142/77 H 100 06/11/18 08:00 06/11/18 08:00 06/11/18 08:00 06/11/18 08:00 06/11/18 08:00 Narrative: - Constitutional no acute distress Comments: Awakened for exam - *Routine HEENT Exam Head: Present: normocephalic, atraumatic Eye: Present: PERRL. Absent: conjunctival icterus, scleral injection ENT: Present: mucous membranes moist, oropharynx clear - *Routine Neck Exam Present: supple, tenderness. Absent: carotid bruit, lymphadenopathy, thyromegaly Comments: Right side of neck - *Routine Respiratory Exam Present: CTA bilaterally (Anteriorly and posteriorly) - *Routine Cardiovascular Exam Present: RRR - *Routine Abdominal Exam Present: soft, normoactive bowel sounds. Absent: tenderness, distended - *Routine Extremities Exam Absent: edema - *Routine Skin Exam Comments: Right scapular with edema and erythema of about 5-6 cm. Center with draining pus. Very tender with removal of tape. - *Routine Neurological Exam Present: alert, oriented X3 DS: Diagnosis - Discharge Diagnosis (1) Abscess of skin or subcutaneous tissue Status: Acute (2) DKA (diabetic ketoacidoses) Status: Acute (3) IDDM (insulin dependent diabetes mellitus) Status: Acute Discharge Plan - Patient Discharge Instructions ACTIVITY: Continue current activity DIET: continue same diet Patient Instructions: DI for Incision and Drainage of a Skin Abscess, DI for Surgical Site Infection - Follow up Plan Follow up with: Louis Montesinos MD [Staff Physician] - 1 week Unknown provider or service follow up:: 06/11/18 15:28 with PCP in 1 week; f/u with wound care in 3 days 06/11/18 15:29 Disposition: Home, Self-[facility] Medications: Home Medications Medication Instructions Recorded Confirmed Type Insulin Aspart [Novolog] 0 unit SQ DIRECTED 06/07/18 06/08/18 History Insulin NPH Hum/Reg Insulin Hm 7 unit SQ PM 06/07/18 06/08/18 History [Humulin 70/30 Insulin 100 Units/mL 10mL Vial] Insulin NPH Hum/Reg Insulin Hm 17 unit SQ DAILY 06/07/18 06/07/18 History [Humulin 70/30 Insulin 100 Units/mL 10mL Vial] Sulfamethoxazole/Trimethoprim 1 each PO BID 06/07/18 06/07/18 History [Bactrim DS tablet] cephALEXin [Keflex 500mg Cap] 500 mg PO TID 06/07/18 06/07/18 History Clindamycin HCl [Cleocin HCl] 300 mg PO TID 10 Days cap 06/11/18 Rx Prescriptions/Medication Reconciliation: New Clindamycin HCl [Cleocin HCl] 300 mg PO TID 10 Days cap Continue Sulfamethoxazole/Trimethoprim [Bactrim DS tablet] 1 each PO BID Insulin NPH Hum/Reg Insulin Hm [Humulin 70/30 Insulin 100 Units/mL 10mL Vial] 17 unit SQ DAILY Insulin NPH Hum/Reg Insulin Hm [Humulin 70/30 Insulin 100 Units/mL 10mL Vial] 7 unit SQ PM Insulin Aspart [Novolog] 0 unit SQ DIRECTED cephALEXin [Keflex 500mg Cap] 500 mg PO TID
== END 2018-06-11 17:51 | disposition home or self-care (01) | DRG 987 ==
LOC: ER 17:54 → 2ND 22:28
PROVIDERS: ADMIT Emergency Medicine; ATTEND Emergency Medicine
DX: M72.6 Necrotizing fasciitis; B95.62 Methicillin resistant Staphylococcus aureus infection as the cause of diseases classified elsewhere; E10.10 Type 1 diabetes mellitus with ketoacidosis without coma; L02.413 Cutaneous abscess of right upper limb; L03.113 Cellulitis of right upper limb
CPT/HCPCS: 36415; 80048; 80053; 80202; 81025; 82009; 82947; 82962; 83605; 83735; 85025; 85651; 86140; 87040; 87070; 87075; 87077; 87186; 87205; 96365; 96366; 96367; 96375; 99284; J2405; J3370; S0077